=== PATIENT | female | born 1995 | race Caucasian/White ===

== ENCOUNTER → 2017-02-17 | Outpatient (CLI) | payer BC ==
--- NOTE | 2017-02-17 17:35 | DIAGNOSTIC IMAGING REPORT ---
C-SPINE ROUTINE 4 OR 5 VIEWS CLINICAL HISTORY: Trauma. Concussion. COMPARISON STUDY: No previous studies for comparison. FINDINGS: Visualization of the cervical spine is adequate. No cervical spine fracture is identified. Facet joints are intact. Prevertebral soft tissues are unremarkable. IMPRESSION: No acute cervical spine fracture or subluxation. Electronically signed by: Mike Smith M.D. 02/17/2017 5:34 PM Dictated Date/Time: 02/17/2017 5:32 PM
--- NOTE | 2017-02-17 17:55 | DIAGNOSTIC IMAGING REPORT ---
SKULL MIN 4 VIEWS CLINICAL HISTORY: 21 years-old Female presenting with concussion, S06.0X9A,S09.90XA. TECHNIQUE: 6 views of the skull were obtained. COMPARISON: None. FINDINGS: Calvarium intact. Paranasal sinuses and mastoid air cells grossly clear. Temporal mandibular joints grossly intact. IMPRESSION: No radiographic evidence of acute osseous injury of the calvarium. Electronically signed by: Danielito Rush M.D. 02/17/2017 5:53 PM Dictated Date/Time: 02/17/2017 5:52 PM
== END | disposition home or self-care (01) ==
LOC: C.RAD1850 16:35
PROVIDERS: ATTEND Family Medicine
DX: S06.0X9A Concussion with loss of consciousness of unspecified duration, initial encounter (principal); S09.90XA Unspecified injury of head, initial encounter; X58.XXXA Exposure to other specified factors, initial encounter